=== PATIENT | male | born 1960 | race American Indian/Alaskan Native ===

== ENCOUNTER 2017-01-17 17:55 | Emergency (ER) | payer BC ==
[2017-01-17 17:55] VITALS: BMI 24.3
[2017-01-17] MEDS ORDERED: Sodium Chloride 0.9% 1,000 ML IV ONE (19:15)
[2017-01-17] MEDS ORDERED: Sodium Chloride 0.9% 1,000 ML ONE (20:03)
[2017-01-17 20:16] LABS: BASO % 0.2 % (0.0-2.0); EOS % 0.1 % (0.0-4.0); HEMATOCRIT 41.6 % (35.0-51.0); LYMPH # 0.8 K/uL (1.0-4.3); LYMPH % 10.9 % (20.0-40.0); MEAN CELL VOLUME 84.3 fL (80.0-94.0); MEAN CORPUSCULAR HEMOGLOBIN 28.1 pg (27.0-31.0); MEAN CORPUSCULAR HGB CONC 33.3 g/dL (33.0-37.0); MEAN PLATELET VOLUME 8.3 fL (7.2-11.7); MONO # 0.5 K/uL (0.0-0.8); MONO % 6.1 % (0.0-10.0); RED CELL DISTRIBUTION WIDTH 14.1 % (11.5-14.5); WHITE BLOOD COUNT 7.6 K/uL (4.8-10.8)
[2017-01-17 20:25] LABS: CHLORIDE 100 mmol/L (98-107); SODIUM 132 mmol/L (132-148)
[2017-01-17 20:27] LABS: ALB/GLOB RATIO 1.2 (1.0-2.1); AST/SGOT 29 U/L (17-59); BILIRUBIN,TOTAL 0.8 mg/dL (0.2-1.3); CARBON DIOXIDE 21 mmol/L (22-30); GFR AFRICAN-AMERICAN > 60; TOTAL PROTEIN 7.5 g/dL (6.3-8.3)
[2017-01-17 20:28] LABS: ALKALINE PHOSPHATASE 68 U/L (38-126); ALT/SGPT 23 U/L (21-72); BLOOD UREA NITROGEN 8 mg/dL (9-20); CALCIUM 9.6 mg/dl (8.6-10.4); GLUCOSE,RANDOM 149 mg/dL (75-110); MAGNESIUM 2.2 mg/dL (1.6-2.3)
[2017-01-17 20:29] LABS: ALCOHOL SERUM < 10 mg/dl (0-10)
--- NOTE | 2017-01-17 23:36 | C.PDOC ---
Time Seen by Provider: 01/17/17 19:00 Chief Complaint (Nursing): Seizure History Per: Patient, EMS Recent Seizure Activity Began: Just Before Arrival Number Of Seizures: One Quality Of Seizure: Generalized Precipitating Factor(s): Missed Dose Of Anti-seizure Medication Associated Symptoms: Bit Tongue Post-ictal Period: Duration Unknown Severity: Moderate Additional History Per: Prior Records Past Medical History Reviewed: Historical Data, Nursing Documentation, Vital Signs Vital Signs: Last Vital Signs Temp 98.3 F 01/17/17 18:08 Pulse 64 01/17/17 22:04 Resp 12 01/17/17 22:04 BP 153/90 H 01/17/17 22:04 Pulse Ox 98 01/17/17 22:04 - Medical History PMH: Diabetes, Seizures (2 or 3 a month "lately" cyst) Surgical History: No Surg Hx - [facility] Procedures DESTRUCTION OF DESCENDING COLON, ENDO (11/08/15) EXC LES TEND SHEATH HAND (02/16/14) EXCISION OF STOMACH, ENDO, DIAGN (11/08/15) Family History: States: Unknown Family Hx - Social History Hx Alcohol Use: No (occasional) Hx Substance Use: No - Immunization History Hx Tetanus Toxoid Vaccination: No Hx Influenza Vaccination: No Hx Pneumococcal Vaccination: No Review Of Systems Except As Marked, All Systems Reviewed And Found Negative. Constitutional: Negative for: Fever, Weakness Cardiovascular: Positive for: Chest Pain (right lower) Respiratory: Negative for: Shortness of Breath Gastrointestinal: Positive for: Nausea. Negative for: Abdominal Pain, Diarrhea Genitourinary: Negative for: Dysuria Musculoskeletal: Negative for: Neck Pain, Back Pain Skin: Negative for: Rash Neurological: Positive for: Seizures, Headache. Negative for: Weakness, Numbness Physical Exam - Physical Exam Appears: Non-toxic, No Acute Distress Skin: Normal Color, Warm, Dry, No Rash Head: Atraumatic, Normacephalic Eye(s): bilateral: PERRL, EOMI Tongue: Bite Neck: Normal ROM, Supple Chest: Symmetrical, No Deformity, Tenderness (right lower chest wall), No Subcutaneous Emphysema Cardiovascular: Rhythm Regular Respiratory: Normal Breath Sounds, No Accessory Muscle Use Gastrointestinal/Abdominal: Soft, No Tenderness Back: No CVA Tenderness Extremity: Normal ROM, No Deformity Neurological/Psych: Oriented x3, Normal Motor, Normal Sensation ED Course And Treatment - Laboratory Results Result Diagrams: 01/17/17 20:14 01/17/17 20:14 O2 Sat by Pulse Oximetry: 98 Pulse Ox Interpretation: Normal - Radiology CXR: Interpreted by Me, Viewed By Me CXR Interpretation: Yes: No Acute Disease - CT Scan/US CT head Other Rad Studies (CT/US): Read By Radiologist, Radiology Report Reviewed CT/US Interpretation: No acute findings. CT Chest Other Rad Studies (CT/US): Read By Radiologist, Radiology Report Reviewed CT/US Interpretation: NAD Progress Note: Pt states he only takes his seizure meds as needed. He states he took them at home right after having a seizure and again while he's here. I educated him to take his medications as prescribed in order to prevent seizures. Reassessment Condition: Improved Progress - Interventions Interventions:: Observation, Intravenous fluid - Medications Administered Intravenous: Antiemetic, NSAID, Other (PPI) - Data Reviewed Data Reviewed: Lab, Diagnostic imaging, Old records - Patient Status Patient status: Mostly improved - Continuity of Care Discussed patient case with:: Patient, ED Nurse - Patient Plan Patient Plan: Discharge, F/U with PCP, Continue present meds Disposition Counseled Patient/Family Regarding: Studies Performed, Diagnosis, Need For Followup - Disposition Referrals: Sathya Sunshine MD [Staff Provider] - Disposition: HOME/ ROUTINE Disposition Time: 23:39 Condition: IMPROVED Additional Instructions: Take your medications as prescribed. Follow up with your neurologist this week. Return to the ER if you develop another seizure, worsening of symptoms or if you have any other concerns. Instructions: Epilepsy (ED) - Clinical Impression Clinical Impression: Epileptic seizure, Contusion of right chest wall
[2017-01-18 00:22] VITALS: BP 159/90; PULSE 81; RESP 20; TEMP 98; O2SAT 100
--- NOTE | 2017-01-18 09:28 | CT ---
PROCEDURE: CT HEAD WITHOUT CONTRAST. HISTORY: s/p seizure, hit head COMPARISON: 07/26/2016 TECHNIQUE: Axial computed tomography images were obtained through the head/brain without intravenous contrast. Radiation dose: Total exam DLP = 999.33 mGy-cm. This CT exam was performed using one or more of the following dose reduction techniques: Automated exposure control, adjustment of the mA and/or kV according to patient size, and/or use of iterative reconstruction technique. FINDINGS: HEMORRHAGE: No intracranial hemorrhage. BRAIN: No significant atrophy. Minimal periventricular white matter lucency with patchy foci deep and subcortical white matter lucency consistent with microvascular ischemic change. No evidence of acute infarct. VENTRICLES: Unremarkable. No hydrocephalus. CALVARIUM: Unremarkable. PARANASAL SINUSES: Unremarkable as visualized. No significant inflammatory changes. MASTOID AIR CELLS: Unremarkable as visualized. No inflammatory changes. OTHER FINDINGS: None. IMPRESSION: No intracranial hemorrhage. No intracranial mass or evidence of acute infarct. Mild chronic white matter ischemic change. Preliminary interpretation of this examination was reported by [facility] at 11:04 p.m. on 01/17/2017. There is concurrence of this report with the preliminary interpretation.
--- NOTE | 2017-01-18 10:46 | CT ---
PROCEDURE: CT Chest without contrast HISTORY: Right lower chest pain/tender s/p seizure. COMPARISON: None. TECHNIQUE: Contiguous axial images were obtained through the chest without intravenous contrast enhancement. Sagittal and coronal reconstructions were performed. Radiation dose (DLP): 285.54 mGy-cm. This CT exam was performed using one or more of the following dose reduction techniques: Automated exposure control, adjustment of the mA and/or kV according to patient size, and/or use of iterative reconstruction technique. FINDINGS: LUNGS: No pulmonary infiltrate. 4 mm nodule within the minor fissure, most likely an intrapulmonary lymph node. No follow-up is required. No other pulmonary mass identified. MEDIASTINUM: Unremarkable thoracic aorta. No aneurysm. Normal sized heart. Main pulmonary artery unremarkable. No vascular congestion. No lymphadenopathy. The left lobe of the thyroid is enlarged and heterogeneous. Correlation with thyroid ultrasound is advised. PLEURA: No pleural fluid. No pneumothorax. BONES: No fracture. No destructive lesion. UPPER ABDOMEN: Grossly unremarkable. OTHER FINDINGS: None. IMPRESSION: No significant abnormality. No evidence of right rib fracture. No hemothorax/ pneumothorax. No evidence of pulmonary contusion. Enlarged heterogeneous left thyroid lobe. Recommend correlation with thyroid ultrasound examination. Preliminary interpretation of this examination was reported by [facility] at 11:10 p.m. on 01/17/2017. There is concurrence of this report with the preliminary interpretation.
--- NOTE | 2017-01-18 13:46 | RAD ---
PROCEDURE: CHEST RADIOGRAPH, 1 VIEW HISTORY: abd pain, s/p seizure COMPARISON: 10/26/2015 FINDINGS: LUNGS: Clear. PLEURA: No pneumothorax or pleural fluid seen. CARDIOVASCULAR: Normal. OSSEOUS STRUCTURES: No significant abnormalities. VISUALIZED UPPER ABDOMEN: Normal. OTHER FINDINGS: None. IMPRESSION: No active disease.
== END 2017-01-18 00:24 | disposition home or self-care (01) ==
LOC: C.ER 17:55
DX: S20.211A Contusion of right front wall of thorax, initial encounter (principal); W18.39XA Other fall on same level, initial encounter; Y92.009 Unspecified place in unspecified non-institutional (private) residence as the place of occurrence of the external cause; G40.909 Epilepsy, unspecified, not intractable, without status epilepticus
CPT/HCPCS: 70450; 71010; 71250; 80053; 83690; 83735; 85025; 96361; 96374; 96375; 99285; C9113; G0480; J1885; J2765; J7040

== ENCOUNTER 2017-02-23 15:42 | Inpatient (IN) | payer BC ==
[2017-02-23 15:43] VITALS: BMI 24.3
--- NOTE | 2017-02-23 16:00 | C.PDOC ---
History Of Present Illness 56m kandis miller being found outside with altered mental status. per ems bystander called due to pt acting confused. the pt has a bracelet indicating he gets confused after seizures. the pt reports feeling that a seizure coming on prior to the incident but does not recall having a seizure. he also notes that his doctor rx a higher dose of oxycontin- 20mg, a few days ago and he took it for the second time today and it makes him feel "dizzy." Time Seen by Provider: 02/23/17 15:47 Chief Complaint (Nursing): Altered Mental Status Past Medical History Vital Signs: Last Vital Signs Temp 99.4 F 02/23/17 16:10 Pulse 77 02/23/17 15:54 Resp 18 02/23/17 15:54 BP 168/94 H 02/23/17 15:54 Pulse Ox 100 02/23/17 16:05 - Medical History PMH: Diabetes, Seizures (2 or 3 a month "lately" cyst) Surgical History: Denies: Pacemaker - [facility] Procedures DESTRUCTION OF DESCENDING COLON, ENDO (11/08/15) EXC LES TEND SHEATH HAND (02/16/14) EXCISION OF STOMACH, ENDO, DIAGN (11/08/15) Family History: States: Unknown Family Hx - Social History Hx Alcohol Use: No (occasional) Hx Substance Use: No - Immunization History Hx Tetanus Toxoid Vaccination: No Hx Influenza Vaccination: No Hx Pneumococcal Vaccination: No Review Of Systems Except As Marked, All Systems Reviewed And Found Negative. Constitutional: Negative for: Fever, Weakness Cardiovascular: Negative for: Chest Pain Respiratory: Negative for: Cough, Shortness of Breath Gastrointestinal: Positive for: Nausea. Negative for: Vomiting, Abdominal Pain Musculoskeletal: Negative for: Neck Pain Neurological: Positive for: Confusion, Seizures, Dizziness. Negative for: Weakness, Numbness, Headache Physical Exam - Physical Exam Appears: Non-toxic, No Acute Distress Skin: Warm, Dry Head: Atraumatic, No Abrasion, No Laceration Eye(s): bilateral: PERRL, EOMI Oral Mucosa: Moist Tongue: No Laceration Lips: No Swelling, No Laceration Neck: Normal ROM, No Midline Cervical Tenderness Cardiovascular: Rhythm Regular Respiratory: No Decreased Breath Sounds, No Accessory Muscle Use, No Rales, No Rhonchi, No Wheezing Gastrointestinal/Abdominal: Soft, No Tenderness Extremity: No Swelling Neurological/Psych: No Oriented x3 (pt is somewhat confused, able to answer some questions clearly but then has some difficulty remembering his own name. ) , Normal Motor, Normal Sensation, Other (no focal deficits) ED Course And Treatment - Laboratory Results Result Diagrams: 02/23/17 16:03 02/23/17 16:03 O2 Sat by Pulse Oximetry: 100 Medical Decision Making Medical Decision Makinpm disc w Dr Madden who will admit Disposition - Disposition Disposition: HOSPITALIZED Disposition Time: 16:41 Condition: STABLE Forms: [facility] ([place]i) - Clinical Impression Clinical Impression: Seizure, Hyponatremia
[2017-02-23 16:10] LABS: BASO # 0.1 K/uL (0.0-0.2); BASO % 1.4 % (0.0-2.0); EOS # 0.1 K/uL (0.0-0.7); EOS % 1.7 % (0.0-4.0); HEMOGLOBIN 14.1 g/dL (12.0-18.0); MEAN CELL VOLUME 83.2 fL (80.0-94.0); MEAN CORPUSCULAR HEMOGLOBIN 28.4 pg (27.0-31.0); MEAN CORPUSCULAR HGB CONC 34.1 g/dL (33.0-37.0); MEAN PLATELET VOLUME 7.8 fL (7.2-11.7); MONO # 0.5 K/uL (0.0-0.8); MONO % 10.2 % (0.0-10.0); NEUT % 65.7 % (50.0-75.0); NRBC % 0.1 % (0.0-2.0); RBC 4.97 Mil/uL (4.40-5.90); RED CELL DISTRIBUTION WIDTH 13.9 % (11.5-14.5); WHITE BLOOD COUNT 4.6 K/uL (4.8-10.8)
[2017-02-23 16:20] LABS: ALBUMIN 4.2 g/dL (3.5-5.0)
[2017-02-23 16:22] LABS: GFR AFRICAN-AMERICAN > 60; GFR NON-AFRICAN AMERICAN > 60
[2017-02-23 16:23] LABS: ALB/GLOB RATIO 1.3 (1.0-2.1); ALT/SGPT 28 U/L (21-72); AST/SGOT 26 U/L (17-59); BLOOD UREA NITROGEN 11 mg/dL (9-20)
[2017-02-23 16:27] LABS: SQUAMOUS EPITHIAL 2 /hpf (0-5); URINE BACTERIA RARE (<OCC); URINE BILIRUBIN NEGATIVE (NEGATIVE); URINE BLOOD NEGATIVE (NEGATIVE); URINE CLARITY Clear (Clear); URINE COLOR Yellow (YELLOW); URINE GLUCOSE (UA) 1+ mg/dL (Normal); URINE LEUKOCYTE ESTERASE NEG Leu/uL (Negative); URINE NITRATE NEGATIVE (NEGATIVE); URINE PROTEIN NEGATIVE (NEGATIVE); URINE UROBILINOGEN NORMAL mg/dL (0.2-1.0)
[2017-02-23] MEDS ORDERED: Sodium Chloride 0.9% 1,000 ML IV ONE (16:32)
[2017-02-23] MEDS ORDERED: Sodium Chloride 0.9% 1,000 ML ONE (16:37)
[2017-02-23 16:57] LABS: BARBITURATES, UR NEGATIVE (NEGATIVE)
[2017-02-23 16:58] LABS: BENZODIAZEPINES, UR NEGATIVE (NEGATIVE)
[2017-02-23 17:01] LABS: OPIATES, UR NEGATIVE (NEGATIVE)
[2017-02-23 17:02] LABS: PHENCYCLIDINE, UR NEGATIVE (NEGATIVE)
[2017-02-23 18:33] VITALS: RESP 20
[2017-02-23] MEDS: Sodium Chloride 0.9% 1,000 ML IV SCH (19:22)
[2017-02-23] MEDS: oxyCODONE 10 mg Immediate Release Tab PO SCH (21:38)
--- NOTE | 2017-02-24 07:25 | CP.PCM.CON ---
History of Present Illness - History of Present Illness History of Present Illness: CONSULT DICTATED BREAK THROUGH SEIZURE POLY PHARMACY HYPONATREMIA\\ NARCOTIC DEPENDANT NEUROPATY PLAN MRI FOCUS AT MES TEMP LOBE DEC TRILEPTAL TO 400 BID KEPPRA T O1500 MG BID OXY CODONE TO BE TAPERED OFF DM CONTROL NEED EEG PSG R/O0 CSA Past Patient History - Infectious Disease Hx of Infectious Diseases: None - Past Medical History & Family History Past Medical History?: Yes - Past Social History Smoking Status: Former Smoker - CARDIAC Hx Pacemaker: No - NEUROLOGICAL Hx Seizures: Yes (2 or 3 a month "lately" cyst) - HEENT Other/Comment: blurry vision,not new,happens whenever he is sick,has prescription eyeglasses but has not used it - ENDOCRINE/METABOLIC Hx Diabetes Mellitus Type 2: Yes - HEMATOLOGICAL/ONCOLOGICAL Hx Blood Transfusions: No Hx Blood Transfusion Reaction: No - INTEGUMENTARY Hx Dermatological Problems: Yes (recurremt cyst on right wrist) Other/Comment: r wrist cyst noted, pt had 3 sx's but it grew back - MUSCULOSKELETAL/RHEUMATOLOGICAL Hx Falls: No Other/Comment: degenerative disc disease;vertebral fracture - PSYCHIATRIC Hx Substance Use: No - SURGICAL HISTORY Other/Comment: right wrist cyst removal x3 - ANESTHESIA Hx Anesthesia: Yes Hx Anesthesia Reactions: No Hx Malignant Hyperthermia: No Meds Allergies/Adverse Reactions: Allergies Allergy/AdvReac Type Severity Reaction Status Date / Time morphine Allergy SHORTNESS Verified 02/23/17 21:58 OF BREATH Penicillins Allergy SWELLING Verified 02/23/17 21:58 shellfish derived Allergy SWELLING Verified 02/23/17 21:58 oxycodone [From OxyContin] AdvReac DIZZINESS Verified 02/23/17 22:01 - Medications Medications: Current Medications Gabapentin (Neurontin) 300 mg PO Q8 [facility] Last Admin: 02/24/17 05:54 Dose: 300 mg Sodium Chloride (Sodium Chloride 0.9%) 1,000 mls @ 40 mls/hr IV .Q24H [facility] Last Admin: 02/23/17 19:22 Dose: 40 mls/hr Levetiracetam (Keppra) 1,500 mg PO Q12 [facility] Oxcarbazepine (Trileptal) 400 mg PO Q12 [facility] Oxycodone HCl (Oxycodone Immediate Release Tab) 5 mg PO DAILY [facility] Oxycodone HCl (Oxycodone Immediate Release Tab) 10 mg PO HS [facility] Last Admin: 02/23/17 21:38 Dose: 10 mg Pneumococcal Polyvalent Vaccine (Pneumovax 23 Vaccine) 0.5 ml IM .ONCE ONE Stop: 02/25/17 10:01 Sitagliptin Phosphate (Januvia) 100 mg PO DAILY [facility] Results - Vital Signs Recent Vital Signs: Last Vital Signs Temp 98.1 F 02/23/17 23:00 Pulse 86 02/23/17 23:00 Resp 20 02/23/17 23:00 BP 118/86 02/23/17 23:00 Pulse Ox 99 02/23/17 23:00 - Labs Result Diagrams: 02/23/17 16:03 02/23/17 16:03 Labs: Laboratory Results - last 24 hr 02/23/17 21:49 POC Glucose (mg/dL) 98
[2017-02-24 07:46] LABS: ALBUMIN 3.6 g/dL (3.5-5.0)
[2017-02-24 07:49] LABS: ALB/GLOB RATIO 1.2 (1.0-2.1); AST/SGOT 25 U/L (17-59); BLOOD UREA NITROGEN 8 mg/dL (9-20); GFR AFRICAN-AMERICAN > 60; GFR NON-AFRICAN AMERICAN > 60
[2017-02-24 07:50] LABS: ALT/SGPT 25 U/L (21-72); CALCIUM 8.5 mg/dl (8.6-10.4)
[2017-02-24 08:01] LABS: OSMOLALITY,URINE 734 mosm/kg (300-1000)
--- NOTE | 2017-02-24 09:14 | RAD ---
HISTORY: Altered mental status COMPARISON: No prior. FINDINGS: LUNGS: Mild venous congestion. PLEURA: No significant pleural effusion identified, no pneumothorax apparent. CARDIOVASCULAR: Normal. OSSEOUS STRUCTURES: No significant abnormalities. VISUALIZED UPPER ABDOMEN: Normal. OTHER FINDINGS: None. IMPRESSION: Mild venous congestion.
[2017-02-24] MEDS: oxyCODONE 5 mg Immediate Release Tab PO SCH (10:04)
--- NOTE | 2017-02-24 11:44 | MRI ---
PROCEDURE: MRI BRAIN WITHOUT CONTRAST HISTORY: rec seizure COMPARISON: Head CT 01/17/2017. TECHNIQUE: Multiplanar, multisequence MR images of the brain were obtained without intravenous contrast enhancement. FINDINGS: HEMORRHAGE: None DWI: No evidence of an acute or early subacute infarction. BRAIN PARENCHYMA: Limited subcortical and periventricular white matter lung tear signal changes are identified primarily the bilateral frontal and parietal lobes most compatible with chronic microangiopathy. There is no mass effect. Minimal expansion of the ventriculosulcal sternal spaces appreciated compatible with diffuse cerebral atrophy. The appearance of the bilateral temporal lobes is unremarkable including the medial segments. No definite pattern to indicate mesial temporal sclerosis. The midline brain and appears diffusely unremarkable and there is no mass effect. VENTRICLES: Unremarkable. No hydrocephalus. CRANIUM: Unremarkable. ORBITS: Grossly unremarkable. PARANASAL SINUSES/MASTOIDS: Limited mucosal changes seen at multiple anterior and middle ethmoid air cells bilaterally. VASCULAR SYSTEM: Skull base flow voids intact. OTHER FINDINGS: None. IMPRESSION: Minimal age-related neuro change identified without acute intracranial findings. MR imaging of the brain is otherwise unremarkable. Limited bilateral ethmoid sinus disease.
--- NOTE | 2017-02-24 13:49 | CARD ---
APPROVED REPORT EKG Measurement Heart [id number] <Conclusion> Normal sinus rhythm Possible Left atrial enlargement Borderline ECG
--- NOTE | 2017-02-24 15:10 | CP.PCM.PN ---
Subjective - Date & Time of Evaluation Date of Evaluation: 02/24/17 Time of Evaluation: 15:07 - Subjective Subjective: This is a 56y/o M with a hx of chronic back pain on oxycodone, history of seizures, DM came to [facility] ED after an episode of syncope vs seizure that happened at home. Given his history of seizures, patient thinks he had a seizure episode. He is unable to recall exact events. He states that he just did not feel well and the next thing he knew, he was at the hospital. As per ER history note, the patient was found to be altered by passerby and EMS was called to transport him to ED. He was found to be hyponatremic and his anti- epileptic medications were adjusted by Dr. Hernandez. This morning he states that he is feeling well. He denies any acute complaints. He headaches, fevers, chills, nausea, vomiting, diarrhea, constipation. Past medical history: seizure disorder, DM, chronic back pain on oxycodone, colon polyps, gastritis, HTN and internal hemorrhoids. Surgical history: Denies abdominal surgery, EGD/colonoscopy October 2015 Social history: Positive smoking, socially drinks alcohol, denies recreational drug use Allergies: Shellfish, penicillin Medications: Reviewed as per [facility] Objective - Vital Signs/Intake and Output Vital Signs (last 24 hours): Temp Pulse Resp BP Pulse Ox 98.9 F 67 20 138/85 98 02/24/17 08:00 02/24/17 09:00 02/24/17 08:00 02/24/17 09:00 02/24/17 09:00 Intake and Output: 02/24/17 02/24/17 06:59 18:59 Intake Total 900 560 Output Total 650 800 Balance 250 -240 - Medications Medications: Current Medications Amlodipine Besylate (Norvasc) 10 mg PO DAILY [facility] Last Admin: 02/24/17 13:47 Dose: 10 mg Gabapentin (Neurontin) 300 mg PO Q8 [facility] Last Admin: 02/24/17 05:54 Dose: 300 mg Sodium Chloride (Sodium Chloride 0.9%) 1,000 mls @ 40 mls/hr IV .Q24H [facility] Last Admin: 02/23/17 19:22 Dose: 40 mls/hr Levetiracetam (Keppra) 1,500 mg PO Q12 [facility] Last Admin: 02/24/17 10:08 Dose: 1,500 mg Lisinopril (Zestril) 20 mg PO DAILY [facility] Last Admin: 02/24/17 13:47 Dose: 20 mg Oxcarbazepine (Trileptal) 300 mg PO Q12 [facility] Last Admin: 02/24/17 11:50 Dose: 300 mg Oxycodone HCl (Oxycodone Immediate Release Tab) 5 mg PO DAILY [facility] Last Admin: 02/24/17 10:04 Dose: 5 mg Oxycodone HCl (Oxycodone Immediate Release Tab) 10 mg PO HS [facility] Last Admin: 02/23/17 21:38 Dose: 10 mg Pneumococcal Polyvalent Vaccine (Pneumovax 23 Vaccine) 0.5 ml IM .ONCE ONE Stop: 02/25/17 10:01 Sitagliptin Phosphate (Januvia) 100 mg PO DAILY [facility] Last Admin: 02/24/17 10:10 Dose: Not Given - Labs Labs: 02/24/17 07:13 - Constitutional Appears: No Acute Distress - Head Exam Head Exam: ATRAUMATIC, NORMAL INSPECTION - Eye Exam Eye Exam: EOMI, Normal appearance - ENT Exam ENT Exam: Mucous Membranes Moist - Respiratory Exam Respiratory Exam: Clear to Ausculation Bilateral, NORMAL BREATHING PATTERN - Cardiovascular Exam Cardiovascular Exam: REGULAR RHYTHM - GI/Abdominal Exam GI & Abdominal Exam: Soft. absent: Distended, Tenderness - Neurological Exam Neurological Exam: Alert, Awake, Oriented x3 Assessment and Plan - Assessment and Plan (Free Text) Plan: Breakthrough Seizures Pt seen by Dr. Hernandez- recommendations appreciated Medications adjusted Keppra 1500mg PO BID Trileptil 300mg PO BID MRI brain- no acute changes Follow up EEG Hyponatremia Decreased Trileptal dose as above Monitor daily electrolytes restrict fluids NS @ 40ml/hour Diabetes- controlled with meds Continue Januvia 100mg daily Diabetic diet HTN-controlled with meds continue home meds: Lisinopril 20mg daily Norvasc 10mg daily Chronic back pain Continue home pain meds:Oxycodon 5mg PO daily and 10mg qhs, gabapentin 300mg TID Prophylaxis
--- NOTE | 2017-02-24 16:05 | CON ---
DATE OF EVALUATION: 02/24/2017 REASON FOR CONSULTATION: Recurrent seizures. CHIEF COMPLAINT: The patient was brought into [facility] with history of seizures at home. The patient was brought into the emergency room with postictal phase. From a neurological point of view, I was called in to evaluate him for further management. HISTORY OF PRESENT ILLNESS: Mr. Bernardo Hall Jr. is a 56-year-old right-handed -Thai male, presenting with altered mental status as per the bystanders, called 911, and the patient was transferred to [facility] for further management. The patient stated that he has been having seizures for many years. He could not recall for how many years he has been having seizures. He was seen by 2 other neurologists locally and hence, there is neurologist involved on this case. Being treated with multiple anti-seizure medications in the past which was not successful. He also had many workups as outpatient without any reasonable recovery as per him. He is also suffering from chronic lower back pain, being loaded with pain medication including OxyContin. He claimed all seizures happened proceeding to that some funny feeling by himself. He knows that seizure is going to happen that manifesting with the dizziness, nausea, and tiredness. After that, he woke up in different places with blood in the mouth. No association with bladder incontinence. PAST MEDICAL HISTORY: Diabetes and seizures with chronic lower back pain, under narcotics. PAST SURGICAL HISTORY: Resection of colon, some cysts removed from his hand and stomach. PERSONAL HISTORY: Denies smoking and alcohol use. ALLERGIES: ALLERGIC TO MORPHINE, PENICILLIN, SHELLFISH, AND OXYCODONE. REVIEW OF SYSTEMS: All 12 systems have been reviewed. In addition to that from a neurological point, he has chronic pain syndrome from his lower back pain as well as recurrent seizures in spite of multiple medications. PHYSICAL EXAMINATION: VITAL SIGNS: Blood pressure 118/86, mean arterial pressure of 96, respiratory rate 16, temperature 98.1, pulse rate 86 and regular. GENERAL: The patient is more awake, alert, oriented to person, place and time. Speech is clear. Naming, repetition, fluency, and comprehension are all within normal. CRANIAL NERVES: Visual field intact. Pupils reactive to light. Extraocular movements normal. No nystagmus. No facial sensory deficit. No facial asymmetry. Hearing is normal. Tongue is midline. Good gag. MOTOR: Equally able to lift both upper extremities against the gravity. No drift noted. No tremor noted. Strength is equal in all 4 extremities with some pain limitation noted. Deep tendon reflexes in biceps, brachialis, triceps are absent. Both knees are absent. Plantars are downgoing. SENSORY: Visual, sensory, motor neuropathy noted. COORDINATION: [id number] test is intact. CONCLUSION: Upon reviewing his history and neurological examination, Mr. Bernardo Hall Jr. has been presenting with mild sensory motor neuropathy associating with recurrent seizures by history, been on multiple medications for his seizures as well as pain medications which are not needed for him. LABORATORY DATA: WBC 4.6, hemoglobin 14.1, hematocrit 49.3, platelets 162. Sodium 124, potassium 4.5, chloride 88, BUN 11, creatinine 0.7, GFR more than 60, glucose 134, calcium 9.0. Liver functions are normal. Urine glucose 1+. Urine toxicology does not show any drugs. RECOMMENDATIONS: 1. I would like to do MRI of the brain *------* the mid brain to focus on mesial temporal region, either it is a sclerosis versus a hippocampal atrophy for his chronic seizure history. 2. Polypharmacy for his seizures which is from my feeling is not appropriate. On top of that, the patient does show hyponatremia secondary to oxcarbazepine. At this point, the Keppra dose can be increased and oxcarbazepine dose can be decreased to 400 q. 12 and Keppra 1500 twice a day. The patient is also taking gabapentin for his pain and oxycodone should be tapered off. The patient should have a transfer program to the in-house as well as the patient should have a polysomnogram that can be done as an outpatient because of his narcotics and chronic pain syndrome with the seizures, sleep-related breathing disorders such as obstructive sleep apnea should be ruled out. Santino Hernandez MD
[2017-02-24] MEDS: Enoxaparin 40 mg Syringe SC SCH (17:47)
[2017-02-24] MEDS: Sodium Chloride 0.9% 1,000 ML IV SCH ×2 (19:30→21:07)
[2017-02-24] MEDS: oxyCODONE 10 mg Immediate Release Tab PO SCH (21:06)
--- NOTE | 2017-02-25 05:12 | OP ---
DATE OF STUDY: 02/24/2017 INTERPRETATIONS: This is a 16-channel electroencephalogram of awake adult. During the study, photic stimulation was performed. Hyperventilation was not performed. Resting electroencephalogram consist of low amplitude diffuse theta activities noted. Intermittent movement artifact and eye artifact contaminant with the background rhythm. This slow activity is continuously noted. At the most, this activity is increased to form 6 Hz 20-30 microvolt theta activity is noted. The frontal and temporal muscle artifact contaminant with the background rhythm intermittently. The photic stimulation did not . IMPRESSION: This is a globally abnormal electroencephalogram for his age because of procedure slowing throughout the record suggestive of bilateral cerebral dysfunction. This probably can contribute to metabolic vascular degenerative process. Please correlate the finding with neurological and radiological studies. Santino Hernandez MD
[2017-02-25 08:14] LABS: BASO % 0.4 % (0.0-2.0); EOS # 0.1 K/uL (0.0-0.7); EOS % 2.3 % (0.0-4.0); HEMOGLOBIN 13.4 g/dL (12.0-18.0); LYMPH # 0.9 K/uL (1.0-4.3); LYMPH % 22.6 % (20.0-40.0); MEAN CELL VOLUME 84.3 fL (80.0-94.0); MEAN CORPUSCULAR HGB CONC 33.2 g/dL (33.0-37.0); MEAN PLATELET VOLUME 8.1 fL (7.2-11.7); MONO # 0.5 K/uL (0.0-0.8); MONO % 11.5 % (0.0-10.0); NEUT # 2.6 K/uL (1.8-7.0); NEUT % 63.2 % (50.0-75.0); NRBC % 0.1 % (0.0-2.0); RBC 4.77 Mil/uL (4.40-5.90); RED CELL DISTRIBUTION WIDTH 13.5 % (11.5-14.5); WHITE BLOOD COUNT 4.1 K/uL (4.8-10.8)
--- NOTE | 2017-02-25 08:21 | PN ---
DATE OF EVALUATION: 02/25/2017. NEUROLOGICAL PROBLEM: Breakthrough seizures and narcotic dependence. PHYSICAL EXAMINATION VITAL SIGNS: Blood pressure 113/68, mean arterial pressure of 83, respiratory rate of 16, temperature 98.1, pulse rate 81, regular. For the last more than 24-hour period, the patient does not have any seizures. Tolerating adjust in the antiepileptic medication well. He slept good. MRI of the brain reviewed by me. No mesial temporal sclerosis or hippocampal atrophy. Electroencephalogram shows no focal slowing or paroxysmal activities. However, EEG shows generalized slow activities all related to his medication. At present, examination is unchanged compared with my previous examination. The patient neurologically is stable. When medically stable, the patient can be discharged and should have followup visit with his neurologist. The patient can have liberal salt diet because his sodium is still low. Yours truly, *------* Santino Hernandez MD
[2017-02-25 08:56] LABS: ALBUMIN 3.8 g/dL (3.5-5.0)
[2017-02-25 08:59] LABS: ALB/GLOB RATIO 1.2 (1.0-2.1); AST/SGOT 24 U/L (17-59); BLOOD UREA NITROGEN 10 mg/dL (9-20); GFR AFRICAN-AMERICAN > 60; GFR NON-AFRICAN AMERICAN > 60
[2017-02-25 09:00] LABS: ALT/SGPT 25 U/L (21-72)
[2017-02-25] MEDS: oxyCODONE 5 mg Immediate Release Tab PO SCH (09:34)
[2017-02-25] MEDS: Enoxaparin 40 mg Syringe SC SCH (09:37)
[2017-02-25] MEDS ORDERED: Pneumococcal 23-Valent Vaccine IM ONE (10:00)
--- NOTE | 2017-02-25 16:49 | CP.PCM.PN ---
Subjective - Date & Time of Evaluation Date of Evaluation: 02/25/17 Time of Evaluation: 16:47 - Subjective Subjective: medicine progress note for Dr. Madden's service Pt seen and examined at bedside. He states that he continues to feel dizzy spells from time to time. No acute events overnight. Pt denies F/C/CP/SOB/N/V/D/ C. Objective - Vital Signs/Intake and Output Vital Signs (last 24 hours): Temp Pulse Resp BP Pulse Ox 98.4 F 64 20 118/71 97 02/25/17 16:01 02/25/17 16:01 02/25/17 16:01 02/25/17 16:01 02/25/17 16:01 Intake and Output: 02/25/17 02/25/17 06:59 18:59 Intake Total 1400 560 Output Total 900 Balance 1400 -340 - Medications Medications: Current Medications Amlodipine Besylate (Norvasc) 10 mg PO DAILY [facility] Last Admin: 02/25/17 09:34 Dose: 10 mg Enoxaparin Sodium (Lovenox) 40 mg SC DAILY [facility] Last Admin: 02/25/17 09:37 Dose: 40 mg Famotidine (Pepcid) 20 mg PO DAILY [facility] Last Admin: 02/25/17 09:33 Dose: 20 mg Gabapentin (Neurontin) 300 mg PO Q8 [facility] Last Admin: 02/25/17 13:00 Dose: 300 mg Sodium Chloride (Sodium Chloride 0.9%) 1,000 mls @ 40 mls/hr IV .Q24H [facility] Last Admin: 02/24/17 21:07 Dose: 40 mls/hr Levetiracetam (Keppra) 1,500 mg PO Q12 [facility] Last Admin: 02/25/17 09:33 Dose: 1,500 mg Lisinopril (Zestril) 20 mg PO DAILY [facility] Last Admin: 02/25/17 09:33 Dose: 20 mg Oxcarbazepine (Trileptal) 300 mg PO Q12 [facility] Last Admin: 02/25/17 09:34 Dose: 300 mg Oxycodone HCl (Oxycodone Immediate Release Tab) 5 mg PO DAILY [facility] Last Admin: 02/25/17 09:34 Dose: 5 mg Oxycodone HCl (Oxycodone Immediate Release Tab) 10 mg PO HS [facility] Last Admin: 02/24/17 21:06 Dose: 10 mg Sitagliptin Phosphate (Januvia) 100 mg PO DAILY [facility] Last Admin: 02/25/17 10:03 Dose: 100 mg - Labs Labs: 02/25/17 08:04 02/25/17 08:04 - Head Exam Head Exam: ATRAUMATIC - Eye Exam Eye Exam: EOMI, Normal appearance - ENT Exam ENT Exam: Mucous Membranes Moist - Respiratory Exam Respiratory Exam: Clear to Ausculation Bilateral, NORMAL BREATHING PATTERN - Cardiovascular Exam Cardiovascular Exam: REGULAR RHYTHM - GI/Abdominal Exam GI & Abdominal Exam: Soft. absent: Distended, Tenderness - Extremities Exam Extremities Exam: absent: Pedal Edema - Neurological Exam Neurological Exam: Alert, Awake, Oriented x3 Assessment and Plan - Assessment and Plan (Free Text) Plan: Breakthrough Seizures Pt seen by Dr. Hernandez- recommendations appreciated Medications adjusted Keppra 1500mg PO BID Trileptil 300mg PO BID MRI brain- no acute changes Follow up EEG results Hyponatremia Decreased Trileptal dose as above to 300mg PO BID Monitor daily electrolytes sodium improving from 122 yesterday to 126 today Follow up AM sodium restrict fluids NS @ 40ml/hour Diabetes- controlled with meds Continue Januvia 100mg daily Diabetic diet HTN-controlled with meds continue home meds: Lisinopril 20mg daily Norvasc 10mg daily Chronic back pain Continue home pain meds:Oxycodon 5mg PO daily and 10mg qhs, gabapentin 300mg TID Prophylaxis Pepcid Lovenox Pt has likely had breakthrough symptoms and seizures from hyponatremia which is secondary to medication effect. He is responding well the decreased trileptil with increase serum sodium today. continue to monitor electrolytes. Plan for discharge when electrolytes normalize and patient is asymptomatic. Case discussed with Dr. Madden. All management as per Dr. Madden.
[2017-02-25] MEDS: oxyCODONE 10 mg Immediate Release Tab PO SCH (21:21)
[2017-02-25] MEDS: Sodium Chloride 0.9% 1,000 ML IV SCH (21:25)
[2017-02-26 07:17] LABS: BASO % 0.6 % (0.0-2.0); EOS # 0.1 K/uL (0.0-0.7); EOS % 2.1 % (0.0-4.0); HEMOGLOBIN 13.5 g/dL (12.0-18.0); LYMPH # 1.1 K/uL (1.0-4.3); LYMPH % 19.9 % (20.0-40.0); MEAN CELL VOLUME 84.5 fL (80.0-94.0); MEAN CORPUSCULAR HEMOGLOBIN 28.1 pg (27.0-31.0); MEAN CORPUSCULAR HGB CONC 33.3 g/dL (33.0-37.0); MONO # 0.8 K/uL (0.0-0.8); MONO % 14.4 % (0.0-10.0); NEUT # 3.4 K/uL (1.8-7.0); NRBC % 0.1 % (0.0-2.0); RBC 4.8 Mil/uL (4.40-5.90); RED CELL DISTRIBUTION WIDTH 13.9 % (11.5-14.5); WHITE BLOOD COUNT 5.5 K/uL (4.8-10.8)
[2017-02-26 07:50] LABS: ALBUMIN 3.8 g/dL (3.5-5.0)
[2017-02-26 07:53] LABS: ALB/GLOB RATIO 1.2 (1.0-2.1); ALT/SGPT 28 U/L (21-72); AST/SGOT 22 U/L (17-59); BLOOD UREA NITROGEN 9 mg/dL (9-20); CALCIUM 9.4 mg/dl (8.6-10.4); GFR AFRICAN-AMERICAN > 60; GFR NON-AFRICAN AMERICAN > 60
[2017-02-26] MEDS: oxyCODONE 5 mg Immediate Release Tab PO SCH (09:26)
[2017-02-26] MEDS: Enoxaparin 40 mg Syringe SC SCH (09:28)
--- NOTE | 2017-02-26 15:53 | CP.PCM.PN ---
Subjective - Date & Time of Evaluation Date of Evaluation: 02/26/17 Time of Evaluation: 07:30 - Subjective Subjective: PGY [address] Madden: Pt seen and examined at bedside. He states that he continues to feel dizzy spells from time to time especially if he walks. No acute events overnight. He states that he would like to go home today and continue physical therapy acupuncture and also see his chiropractor. He did not want to go to rehab because he stated he has an appointment on Friday with another doctor that he needed to be at. Pt denies F/C/CP/SOB/N/V/D/C. He stated that he uses a cane to ambulate and would like a new one if it can be ordered to be delivered to his house. Objective - Vital Signs/Intake and Output Vital Signs (last 24 hours): Temp Pulse Resp BP Pulse Ox 98.2 F 75 20 135/81 97 02/26/17 09:39 02/26/17 13:00 02/26/17 09:39 02/26/17 13:00 02/26/17 09:39 Intake and Output: 02/26/17 02/26/17 06:59 18:59 Intake Total 680 520 Balance 680 520 - Medications Medications: Current Medications Amlodipine Besylate (Norvasc) 10 mg PO DAILY [facility] Last Admin: 02/26/17 09:26 Dose: 10 mg Enoxaparin Sodium (Lovenox) 40 mg SC DAILY [facility] Last Admin: 02/26/17 09:28 Dose: 40 mg Famotidine (Pepcid) 20 mg PO DAILY [facility] Last Admin: 02/26/17 09:26 Dose: 20 mg Gabapentin (Neurontin) 300 mg PO Q8 [facility] Last Admin: 02/26/17 13:31 Dose: 300 mg Sodium Chloride (Sodium Chloride 0.9%) 1,000 mls @ 40 mls/hr IV .Q24H [facility] Last Admin: 02/25/17 21:25 Dose: 40 mls/hr Levetiracetam (Keppra) 1,500 mg PO Q12 [facility] Last Admin: 02/26/17 09:27 Dose: 1,500 mg Lisinopril (Zestril) 20 mg PO DAILY [facility] Last Admin: 02/26/17 09:27 Dose: 20 mg Oxcarbazepine (Trileptal) 300 mg PO Q12 [facility] Last Admin: 02/26/17 09:25 Dose: 300 mg Oxycodone HCl (Oxycodone Immediate Release Tab) 5 mg PO DAILY [facility] Last Admin: 02/26/17 09:26 Dose: 5 mg Oxycodone HCl (Oxycodone Immediate Release Tab) 10 mg PO HS [facility] Last Admin: 02/25/17 21:21 Dose: 10 mg Sitagliptin Phosphate (Januvia) 100 mg PO DAILY [facility] Last Admin: 02/26/17 09:26 Dose: 100 mg - Labs Labs: 02/26/17 06:59 02/26/17 06:59 - Constitutional Appears: Non-toxic, No Acute Distress - Head Exam Head Exam: ATRAUMATIC, NORMAL INSPECTION - Eye Exam Eye Exam: EOMI, PERRL Pupil Exam: NORMAL ACCOMODATION - ENT Exam ENT Exam: Mucous Membranes Moist - Respiratory Exam Respiratory Exam: Clear to Ausculation Bilateral, NORMAL BREATHING PATTERN. absent: Rales, Rhonchi, Wheezes, Respiratory Distress - Cardiovascular Exam Cardiovascular Exam: REGULAR RHYTHM, +S1, +S2 - GI/Abdominal Exam GI & Abdominal Exam: Soft, Normal Bowel Sounds. absent: Distended, Firm, Guarding, Tenderness - Extremities Exam Extremities Exam: Normal Inspection. absent: Calf Tenderness, Pedal Edema - Back Exam Back Exam: NORMAL INSPECTION. absent: CVA tenderness (L), CVA tenderness (R), paraspinal tenderness - Neurological Exam Neurological Exam: Alert, Awake, CN II-XII Intact. absent: Oriented x3 - Psychiatric Exam Psychiatric exam: Anxious, Normal Affect, Normal Mood - Skin Skin Exam: Dry, Intact, Normal Color, Warm Assessment and Plan - Assessment and Plan (Free Text) Assessment: Breakthrough Seizures Pt seen by Dr. Hernandez- recommendations appreciated Medications adjusted Keppra 1500mg PO BID Trileptil 400mg PO BID MRI brain- no acute changes Follow up EEG results No new seizure activity in the last day Hyponatremia Decreased Trileptal dose as above to 400mg PO BID Monitor daily electrolytes sodium improved ro 131 today restrict fluids NS @ 40ml/hour Diabetes- controlled with meds Continue Januvia 100mg daily Diabetic diet HTN-controlled with meds continue home meds: Lisinopril 20mg daily Norvasc 10mg daily Chronic back pain Continue Percocet and Gabapentin Prophylaxis Pepcid Lovenox Physical therapy recommended discharge to rehab. Patient refused rehab stating he had another doctors appointment he had to go to on Friday. HE states he goes to physical therapy regularly along with accupuncture and his chiropractor. He would like to continue therapy at his regular location. manager market development will order another cane to be delivered to the patient's house. Patient is stable for discharge per Dr. Madden. He is to continue Physical therapy as requested at his current location as the patient preferred not to go to rehab. He is to follow up with Dr. Madden within one week of discharge. He is also to follow up with his neurologist for post hospital care and monitoring os his seizures. Case management will order a cane to be delivered to his house. Patient is to continue his home medications. His seizure medications were changed and should be taken as listed below: 1. Keppra 1500mg by mouth twice a day 2. Trileptal 400mg by mouth twice a day He was given a 5 day supply of percocet for pain. (#20 pills total) He is to return to the ED if symptoms return. All instructions explained to the patient and he agrees. When the patient was told he would only get a 5 day supply of percocet he became upset and said "20 pills will not do anything". He was told that he would need to follow up with his primary for further medications. He was requesting a script for 60 percocet. All of his medications were sent to the [facility] outpatient pharmacy as requested by the patient. Case discussed with Dr. Madden. All management as per Dr. Madden.
[2017-02-26 16:20] VITALS: BP 122/68; PULSE 72; TEMP 98.5; O2SAT 98
[2017-02-27 21:11] LABS: LEVETIRACETAM 27.7 mcg/mL
[2017-02-27 23:50] LABS: 10-HYDROXYCARBAZEPINE 52.8 mcg/mL (8.0-35.0)
== END 2017-02-26 17:25 | disposition home or self-care (01) | DRG 101 ==
LOC: C.ER 15:42 → C.9E 16:43 → C.3T 17:12
PROVIDERS: ADMIT Internal Medicine Pulmonary Disease; ATTEND Internal Medicine Pulmonary Disease
PROC: 4A00X4Z Measurement of Central Nervous Electrical Activity, External Approach (ICD-10-PCS; principal; 2017-02-24)
DX: G40.909 Epilepsy, unspecified, not intractable, without status epilepticus (principal); E11.40 Type 2 diabetes mellitus with diabetic neuropathy, unspecified; E87.1 Hypo-osmolality and hyponatremia; F11.20 Opioid dependence, uncomplicated; R42 Dizziness and giddiness; I10 Essential (primary) hypertension; M54.5 Low back pain; T42.1X5A Adverse effect of iminostilbenes, initial encounter; G89.29 Other chronic pain; Z79.891 Long term (current) use of opiate analgesic; Z86.010 Personal history of colon polyps; Z87.891 Personal history of nicotine dependence; Z88.0 Allergy status to penicillin; Z91.013 Allergy to seafood; Z79.4 Long term (current) use of insulin; Z79.84 Long term (current) use of oral hypoglycemic drugs